=== PATIENT | female | born 1975 | race Caucasian/White ===

== ENCOUNTER 2018-05-09 19:44 | Emergency (ER) | payer SELFPAY ==
[~2018-05-09] VITALS: Ht 160 cm; Wt 68.0 kg
--- NOTE | 2018-05-09 20:17 | NUR ---
FIRST CONTACT WITH PT. PT WAS SENT FROM [facility] D/T SWELLING/PAIN ON LEFT EYE. PT C/O LEFT FACIAL PAIN AND YELLOWISH DISCHARGE FROM LEFT EYE WELL. NOT WEARING CONTACT LENDS. PT'S AOX4. RESPS EVEN AND UNLABORED. PT'S FAMILY AT BEDSIDE.
[2018-05-09] MEDS ORDERED: AMPICILLIN/SULBACTAM 3 GM in SODIUM CHLORIDE 0.9% 100 ML IV ONE (20:30)
--- NOTE | 2018-05-09 20:47 | NUR ---
PT MEDICATED PER EMAR. PT TOLERATED WELL.
[2018-05-09 21:59] VITALS: BP 96/53
--- NOTE | 2018-05-09 22:00 | NUR ---
PT GIVEN DC INSTRUCTIONS AND SCRIPTS. PT EDUCATED REGARDING DC MEDICATION. PT'S AOX4. RESPS EVEN AND UNLABORED. NO ACUTE DISTRESS AT DC.
== END 2018-05-09 22:01 | disposition home or self-care (01) ==
LOC: ED 21:55
DX: H05.012 Cellulitis of left orbit (principal); L03.213 Periorbital cellulitis
CPT/HCPCS: 96365; 99283; J0295